=== PATIENT | female | born 1985 | race Caucasian/White ===

== ENCOUNTER 2018-05-06 14:11 | Emergency (ER) | payer BC ==
[~2018-05-06] VITALS: Ht 167.6 cm; Wt 112.5 kg
[~2018-05-06 14:11] MED LIST: ACET325; ALBU90I; ALBU90OI; ALBU90OI INH; ALBU90OI6; ALBU90OI6 INH; ALBU90OI61 INH; ALUMAGSIMA; ALUMAGX30; AMOX500 PO; ARIP10 PO; AZIT250 PO; AZIT500 PO; BENADRYL25 MG PO; BENZ100A PO; CALCAVITDA PO; CALGLU500; CAMPHETO; CEPH250SUA PO; CEPH500 PO; CETYLOZ; CLAR250 PO; CLON.5; CLOT1TC; CODACE30 PO; CODGUAEL PO; ERGO400 PO; FLUT110OIA IH; GUAPHELA PO; HYDACE5 PO; HYDGUAL120 PO; IBUP600; IBUP600 PO; IBUP800 PO; Indocin50 MG PO; LORA1; LORA2; MEDR150I IM; META800 PO; METPRE4DP PO; METR500 PO; MIRT30; MOM; MULVITMINE PO; Monodox100 MG PO; Mucinex600 MG PO; NALT50; NAPR500 PO; NAPR550 PO; NICO14TP; OLAN10A; ONDA4ODT MM; OXYACE5T PO; PHENA200 PO; PRAHYD1AE TOP; PRAZ1 PO; PRED20 PO; PROCODE120 PO; PROM25 PO; Pepcid20 MG PO; RANI150 PO; RXHYDGUAS PO; RXNAPNA550 PO; RXOXYACE PO; RXPROCODSY PO; RXPROM25 PO; RXSULTRIDS PO; RXTRAM50 PO; SERT25 PO; SERT50 PO; SULTRIDS PO; Sprintec1 EACH PO; TRAM50 PO; TRAZ100 PO; TRAZ50 PO; VITAMIN D35000 UNIT PO; ZYRTEC10 M1 PO; Zithromax250 MG PO; Zofran4 MG PO; [UNRECOGNIZED DRUG - OTHER]; [UNRECOGNIZED DRUG - OTHER]
[2018-05-06] MEDS ORDERED: METR500 PO (15:09)
[2018-05-06] MEDS ORDERED: FLUO10 PO (15:10)
[2018-05-06] MEDS ORDERED: CLIN300 PO (15:10)
[2018-05-06] MEDS ORDERED: TRAZ50 PO (15:11)
[2018-05-06] MEDS ORDERED: LORA1 PO (15:11)
[2018-05-06] MEDS ORDERED: QVAR REDIHALE10.6 G1 INH (15:12)
[2018-05-06 16:19] LABS: BASOPHILS ABSOLUTE AUTO 0.04 K/mm3 (0.00-0.23); BASOPHILS PERCENT AUTO 0 % (0-2); EOSINOPHILS ABSOLUTE AUTO 0.37 K/mm3 (0.00-0.68); EOSINOPHILS PERCENT AUTO 4 % (0-6); Hematocrit 41.4 % (33.0-51.0); Hemoglobin 14.1 g/dL (11.5-16.0); IMMATURE GRAN ABSOLUTE AUTO 0.03 K/mm3 (0.00-0.10); IMMATURE GRAN PERCENT AUTO 0 % (0-1); LYMPHOCYTES ABSOLUTE AUTO 1.74 K/mm3 (0.84-5.20); LYMPHOCYTES PERCENT AUTO 19 % (21-46); MONOCYTES PERCENT AUTO 9 % (4-13); Mean Corpuscular HGB 31.6 pg (26.0-34.0); Mean Corpuscular HGB Conc 34.1 g/dL (31.5-36.5); Mean Corpuscular Volume 93 fL (80-100); Mean Platelet Volume 9.7 fL (9.1-12.4); NEUTROPHILS ABSOLUTE AUTO 6.15 K/mm3 (1.96-9.15); NEUTROPHILS PERCENT AUTO 67 % (41-73); Platelet Count 269 K/mm3 (150-400); RDW Coefficient Variation 12.2 % (11.7-14.2); Red Blood Cell Count 4.46 M/mm3 (3.80-5.20); White Blood Cell Count 9.13 K/mm3 (4.00-11.30)
[2018-05-06 16:32] LABS: Anion Gap 9 mmol/L (6-16); Blood Urea Nitrogen 10 mg/dL (8-24); Bun/Creatinine Ratio 15.5 (12.0-20.0); CO2, Blood 25 mmol/L (21-32); Calcium, Blood 8.6 mg/dL (8.5-10.1); Chloride, Blood 106 mmol/L (98-108); Creatinine, Blood 0.65 mg/dL (0.40-1.00); Glomerular Filtration Rate >60 (60-); Glucose, Blood 88 mg/dL (70-99); Potassium, Blood 3.9 mmol/L (3.5-5.5); Sodium, Blood 140 mmol/L (136-145)
[2018-05-06] MEDS ORDERED: CEPH500 PO (19:02)
[2018-05-06] MEDS ORDERED: Bactrim Ds Tab1 EACH PO (19:02)
== END 2018-05-06 19:15 | disposition home or self-care (01) ==
LOC: ER 14:11
PROVIDERS: Physician Assistant
DX: L92.8 Other granulomatous disorders of the skin and subcutaneous tissue (principal); J45.909 Unspecified asthma, uncomplicated; Z88.0 Allergy status to penicillin; Z88.8 Allergy status to other drugs, medicaments and biological substances; Z79.899 Other long term (current) drug therapy; Z87.891 Personal history of nicotine dependence
CPT/HCPCS: 36415; 72193; 80048; 81000; 81025; 85025; 96361; 96374; 99284-25; J1885; J7030; Q9967

== ENCOUNTER 2018-07-14 06:15 | Day surgery (SDC) | payer BC ==
[~2018-07-14] VITALS: Ht 167.6 cm; Wt 110.4 kg
[~2018-07-14 06:15] MED LIST changes: +Bactrim Ds Tab1 EACH PO; +CITA20 PO; +CLIN300 PO; +FLUO10 PO; +LORA1 PO; +QVAR REDIHALE10.6 G1 INH; +Voltaren100 GM TOP
== END 2018-07-14 11:20 | disposition home or self-care (01) ==
LOC: ORSCSDS 06:15
PROVIDERS: Surgery
PROC: 0JB90ZZ Excision of Buttock Subcutaneous Tissue and Fascia, Open Approach (ICD-10-PCS; principal; 2018-07-14 07:30)
PROC: 0HX8XZZ Transfer Buttock Skin, External Approach (ICD-10-PCS; principal; 2018-07-14 07:30)
DX: L05.01 Pilonidal cyst with abscess (principal); J45.909 Unspecified asthma, uncomplicated; Z87.891 Personal history of nicotine dependence; E66.01 Morbid (severe) obesity due to excess calories; Z68.39 Body mass index [BMI] 39.0-39.9, adult; K21.9 Gastro-esophageal reflux disease without esophagitis; Z79.899 Other long term (current) drug therapy
CPT/HCPCS: 88305; J1100; J2001; J2405; J2765; J3010; J7120

== ENCOUNTER 2019-08-27 18:42 | Emergency (ER) | payer BC ==
[~2019-08-27] VITALS: Ht 167.6 cm; Wt 115.7 kg
[2019-08-27] MEDS ORDERED: IBUP800 PO (20:31)
[2019-08-27] MEDS ORDERED: HYDPAM50 (20:32)
[2019-08-27] MEDS ORDERED: BENADRYL25 MG PO (20:54)
[2019-08-27] MEDS ORDERED: Esgic Tablet1 EACH PO (20:54)
[2019-08-27] MEDS ORDERED: METO10 PO (20:54)
== END 2019-08-27 21:05 | disposition home or self-care (01) ==
LOC: ER 18:42
DX: F07.81 Postconcussional syndrome (principal); J45.909 Unspecified asthma, uncomplicated; Z88.0 Allergy status to penicillin; Z88.1 Allergy status to other antibiotic agents; Z88.8 Allergy status to other drugs, medicaments and biological substances; Z79.899 Other long term (current) drug therapy; Z79.51 Long term (current) use of inhaled steroids; Z87.891 Personal history of nicotine dependence
CPT/HCPCS: 70450; 72125; 99283-25

== ENCOUNTER 2020-01-10 14:57 | Emergency (ER) | payer BC ==
[~2020-01-10] VITALS: Ht 167.6 cm; Wt 113.8 kg
[~2020-01-10 14:57] MED LIST changes: +AMIT25 PO; +Esgic Tablet1 EACH PO; +HYDPAM50; +METO10 PO
[2020-01-10] MEDS ORDERED: FLUT1DIS5 INH (15:16)
[2020-01-10 15:38] LABS: BASOPHILS ABSOLUTE AUTO 0.05 K/mm3 (0.00-0.23); BASOPHILS PERCENT AUTO 0 % (0-2); EOSINOPHILS ABSOLUTE AUTO 0.43 K/mm3 (0.00-0.68); EOSINOPHILS PERCENT AUTO 4 % (0-6); Hematocrit 44.9 % (33.0-51.0); Hemoglobin 15.3 g/dL (11.5-16.0); IMMATURE GRAN ABSOLUTE AUTO 0.03 K/mm3 (0.00-0.10); IMMATURE GRAN PERCENT AUTO 0 % (0-1); LYMPHOCYTES ABSOLUTE AUTO 3.04 K/mm3 (0.84-5.20); LYMPHOCYTES PERCENT AUTO 26 % (21-46); MONOCYTES PERCENT AUTO 5 % (4-13); Mean Corpuscular HGB 31.4 pg (26.0-34.0); Mean Corpuscular HGB Conc 34.1 g/dL (31.5-36.5); Mean Corpuscular Volume 92 fL (80-100); Mean Platelet Volume 9.6 fL (9.1-12.4); NEUTROPHILS ABSOLUTE AUTO 7.74 K/mm3 (1.96-9.15); NEUTROPHILS PERCENT AUTO 65 % (41-73); Platelet Count 334 K/mm3 (150-400); RDW Coefficient Variation 12.2 % (11.7-14.2); RDW Standard Deviation 41.7 fL (35.1-46.3); Red Blood Cell Count 4.87 M/mm3 (3.80-5.20); White Blood Cell Count 11.89 K/mm3 (4.00-11.30)
[2020-01-10 16:01] LABS: Alanine Aminotransfer (ALT/SGP 28 U/L (12-78); Albumin, Blood 4.2 g/dL (3.4-5.0); Albumin/Globulin Ratio 1.1 (0.8-1.8); Alk Phos 95 U/L (50-136); Anion Gap 6 mmol/L (6-16); Aspartate Aminotrans (AST/SGOT 17 U/L (12-37); Bilirubin, Total 0.3 mg/dL (0.1-1.0); Blood Urea Nitrogen 12 mg/dL (8-24); CO2, Blood 25 mmol/L (21-32); Chloride, Blood 105 mmol/L (98-108); Creatinine, Blood 0.63 mg/dL (0.40-1.00); Globulin, Blood 3.9 g/dL (2.2-4.0); Glomerular Filtration Rate >60 (60-); Glucose, Blood 91 mg/dL (70-99); Potassium, Blood 3.8 mmol/L (3.5-5.5); Sodium, Blood 136 mmol/L (136-145); Total Protein, Blood 8.1 g/dL (6.4-8.2)
== END 2020-01-10 19:28 | disposition home or self-care (01) ==
LOC: ER 14:57
PROVIDERS: Physician Assistant
DX: F07.81 Postconcussional syndrome (principal); I10 Essential (primary) hypertension; F31.9 Bipolar disorder, unspecified; F17.210 Nicotine dependence, cigarettes, uncomplicated; Z79.899 Other long term (current) drug therapy
CPT/HCPCS: 36415; 70551; 80053; 85025; 99284-25

== ENCOUNTER 2020-10-31 17:30 | Emergency (ER) | payer OTHER, BC ==
[~2020-10-31] VITALS: Ht 170.2 cm; Wt 113.4 kg
[~2020-10-31 17:30] MED LIST changes: +FLUT1DIS5 INH
[2020-10-31] MEDS ORDERED: CYCL10 PO (19:25)
[2020-10-31] MEDS ORDERED: Percocet 5-3251 EACH PO (19:25)
== END 2020-10-31 19:37 | disposition home or self-care (01) ==
LOC: ER 17:30
DX: M54.16 Radiculopathy, lumbar region (principal); I10 Essential (primary) hypertension; Z87.891 Personal history of nicotine dependence
CPT/HCPCS: 96372; 99283-25; A9270; J1885

== ENCOUNTER 2020-12-29 15:15 | Emergency (ER) | payer OTHER, BC ==
[~2020-12-29] VITALS: Ht 165.1 cm; Wt 109.8 kg
[~2020-12-29 15:15] MED LIST changes: +CYCL10 PO; +Percocet 5-3251 EACH PO
[2020-12-29] MEDS ORDERED: CYCL10 PO (16:30)
[2020-12-29] MEDS ORDERED: IBUP400 PO (16:30)
== END 2020-12-29 16:43 | disposition home or self-care (01) ==
LOC: ER 15:15
DX: M54.5 Low back pain (principal); G89.29 Other chronic pain; I10 Essential (primary) hypertension; Z88.0 Allergy status to penicillin; Z88.1 Allergy status to other antibiotic agents; Z88.8 Allergy status to other drugs, medicaments and biological substances; Z79.899 Other long term (current) drug therapy
CPT/HCPCS: 96372; 99282-25; J1885

== ENCOUNTER 2021-01-19 11:44 | Emergency (ER) | payer OTHER, BC ==
[~2021-01-19] VITALS: Ht 165.1 cm; Wt 109.8 kg
[~2021-01-19 11:44] MED LIST changes: +IBUP400 PO
[2021-01-19] MEDS ORDERED: Norco 5-325 Ta1 EACH PO (12:54)
== END 2021-01-19 13:05 | disposition home or self-care (01) ==
LOC: ER 11:44
DX: R07.89 Other chest pain (principal); Z88.0 Allergy status to penicillin; Z88.1 Allergy status to other antibiotic agents; Z88.8 Allergy status to other drugs, medicaments and biological substances; Z79.899 Other long term (current) drug therapy; F17.200 Nicotine dependence, unspecified, uncomplicated
CPT/HCPCS: 73000; 99283-25

== ENCOUNTER 2021-04-14 14:15 | Emergency (ER) | payer OTHER, BC ==
[~2021-04-14] VITALS: Ht 165.1 cm; Wt 108.9 kg
[~2021-04-14 14:15] MED LIST changes: +Norco 5-325 Ta1 EACH PO
[2021-04-14 15:53] LABS: BASOPHILS ABSOLUTE AUTO 0.04 K/mm3 (0.00-0.23); BASOPHILS PERCENT AUTO 0 % (0-2); EOSINOPHILS ABSOLUTE AUTO 0.33 K/mm3 (0.00-0.68); EOSINOPHILS PERCENT AUTO 3 % (0-6); Hematocrit 44.3 % (33.0-51.0); Hemoglobin 15.2 g/dL (11.5-16.0); IMMATURE GRAN ABSOLUTE AUTO 0.05 K/mm3 (0.00-0.10); IMMATURE GRAN PERCENT AUTO 0 % (0-1); LYMPHOCYTES ABSOLUTE AUTO 2.67 K/mm3 (0.84-5.20); LYMPHOCYTES PERCENT AUTO 22 % (21-46); MONOCYTES PERCENT AUTO 6 % (4-13); Mean Corpuscular HGB 30.7 pg (26.0-34.0); Mean Corpuscular HGB Conc 34.3 g/dL (31.5-36.5); Mean Corpuscular Volume 90 fL (80-100); Mean Platelet Volume 9.6 fL (9.1-12.4); NEUTROPHILS PERCENT AUTO 69 % (41-73); Platelet Count 340 K/mm3 (150-400); RDW Standard Deviation 39.4 fL (35.1-46.3); Red Blood Cell Count 4.95 M/mm3 (3.80-5.20); White Blood Cell Count 12.29 K/mm3 (4.00-11.30)
[2021-04-14 16:12] LABS: Alanine Aminotransfer (ALT/SGP 22 U/L (12-78); Albumin/Globulin Ratio 1.1 (0.8-1.8); Alk Phos 96 U/L (50-136); Anion Gap 6 mmol/L (6-16); Aspartate Aminotrans (AST/SGOT 11 U/L (12-37); Bilirubin, Total 0.3 mg/dL (0.1-1.0); Blood Urea Nitrogen 12 mg/dL (8-24); Bun/Creatinine Ratio 22.8 (12.0-20.0); CO2, Blood 23 mmol/L (21-32); Calcium, Blood 9.4 mg/dL (8.5-10.1); Chloride, Blood 108 mmol/L (98-108); Creatinine, Blood 0.53 mg/dL (0.40-1.00); Globulin, Blood 3.6 g/dL (2.2-4.0); Glomerular Filtration Rate >60 (60-); Glucose, Blood 101 mg/dL (70-99); Potassium, Blood 4.1 mmol/L (3.5-5.5); Sodium, Blood 137 mmol/L (136-145); Total Protein, Blood 7.6 g/dL (6.4-8.2)
[2021-04-14 20:41] LABS: Troponin I <0.015 ng/mL (0.000-0.040)
[2021-04-14 20:51] LABS: Source, Urine Voided
[2021-04-14 20:54] LABS: Bilirubin, Urine Neg (Neg); Blood, Urine 1+ (Neg); Color, Urine Yellow (P-Yellow); Glucose Qualitative, Urine Neg (Neg); Ketones, Urine Neg (Neg); Leukocyte Esterase, Urine Neg (Neg); Nitrite, Urine Neg (Neg); Protein, Urine Neg (Neg); Specific Gravity, Urine 1.025 (1.003-1.022); Urobilinogen, Urine NORM (Normal)
[2021-04-14 21:04] LABS: Appearance, Urine Hazy (Clear)
[2021-04-14 21:05] LABS: Bacteria Many /hpf; Mucus Light (0-Heavy); Red Blood Cells, Urine Rare /hpf (0-2); Squamous Epithelial Cells Mod /hpf (Few); White Blood Cells, Urine 0-2 /hpf (0-5)
== END 2021-04-14 21:54 | disposition home or self-care (01) ==
LOC: ER 14:15
PROVIDERS: Emergency Medicine; Physician Assistant
DX: R41.0 Disorientation, unspecified (principal); R51.9 Headache, unspecified; I95.9 Hypotension, unspecified; J45.909 Unspecified asthma, uncomplicated; F17.210 Nicotine dependence, cigarettes, uncomplicated; Z88.0 Allergy status to penicillin; Z88.1 Allergy status to other antibiotic agents; Z88.8 Allergy status to other drugs, medicaments and biological substances; Z79.899 Other long term (current) drug therapy; Z98.890 Other specified postprocedural states
CPT/HCPCS: 36415; 80053; 81001; 84443; 84484; 84703; 85025; 87086; 93005; 93010; 96361; 96374; 99284-25; J2405; J7030

== ENCOUNTER → 2021-05-14 | Outpatient (CLI) | payer OTHER, BC | END | disposition home or self-care (01) | LOC: LAB SHORT 11:29 | DX: R09.89 Other specified symptoms and signs involving the circulatory and respiratory systems (principal) | CPT/HCPCS: 87070 ==

== ENCOUNTER → 2022-02-07 | Outpatient (CLI) | payer BC ==
[2022-02-07 11:13] LABS: BASOPHILS ABSOLUTE AUTO 0.03 K/mm3 (0.00-0.23); BASOPHILS PERCENT AUTO 0 % (0-2); EOSINOPHILS PERCENT AUTO 2 % (0-6); Hematocrit 45.5 % (33.0-51.0); Hemoglobin 15.9 g/dL (11.5-16.0); IMMATURE GRAN ABSOLUTE AUTO 0.06 K/mm3 (0.00-0.10); IMMATURE GRAN PERCENT AUTO 1 % (0-1); LYMPHOCYTES ABSOLUTE AUTO 1.57 K/mm3 (0.84-5.20); LYMPHOCYTES PERCENT AUTO 12 % (21-46); MONOCYTES ABSOLUTE AUTO 1.04 K/mm3 (0.16-1.47); MONOCYTES PERCENT AUTO 8 % (4-13); Mean Corpuscular HGB 31.8 pg (26.0-34.0); Mean Corpuscular HGB Conc 34.9 g/dL (31.5-36.5); Mean Corpuscular Volume 91 fL (80-100); Mean Platelet Volume 9.2 fL (9.1-12.4); NEUTROPHILS ABSOLUTE AUTO 10.07 K/mm3 (1.96-9.15); NEUTROPHILS PERCENT AUTO 77 % (41-73); Platelet Count 273 K/mm3 (150-400); RDW Standard Deviation 42.5 fL (35.1-46.3); White Blood Cell Count 13.07 K/mm3 (4.00-11.30)
[2022-02-07 11:21] LABS: Bun/Creatinine Ratio 11.7 (12.0-20.0); Creatinine, Blood 0.77 mg/dL (0.40-1.00); Potassium, Blood 4.1 mmol/L (3.5-5.5)
== END | disposition home or self-care (01) ==
LOC: LAB SHORT 11:10
PROVIDERS: Physician Assistant
DX: R05.1 Acute cough (principal)
CPT/HCPCS: 80048; 85025

== ENCOUNTER → 2022-09-09 | Outpatient (CLI) | payer BC ==
[2022-09-09 17:35] LABS: BASOPHILS ABSOLUTE AUTO 0.06 K/mm3 (0.00-0.23); BASOPHILS PERCENT AUTO 1 % (0-2); EOSINOPHILS ABSOLUTE AUTO 0.55 K/mm3 (0.00-0.68); EOSINOPHILS PERCENT AUTO 5 % (0-6); Hemoglobin 15.3 g/dL (11.5-16.0); IMMATURE GRAN ABSOLUTE AUTO 0.04 K/mm3 (0.00-0.10); IMMATURE GRAN PERCENT AUTO 0 % (0-1); LYMPHOCYTES ABSOLUTE AUTO 3.11 K/mm3 (0.84-5.20); LYMPHOCYTES PERCENT AUTO 26 % (21-46); MONOCYTES ABSOLUTE AUTO 0.77 K/mm3 (0.16-1.47); MONOCYTES PERCENT AUTO 7 % (4-13); Mean Corpuscular HGB Conc 34.8 g/dL (31.5-36.5); Mean Corpuscular Volume 89 fL (80-100); Mean Platelet Volume 9.7 fL (9.1-12.4); NEUTROPHILS ABSOLUTE AUTO 7.27 K/mm3 (1.96-9.15); NEUTROPHILS PERCENT AUTO 62 % (41-73); Platelet Count 375 K/mm3 (150-400); RDW Coefficient Variation 12.3 % (11.7-14.2); RDW Standard Deviation 40.2 fL (35.1-46.3); Red Blood Cell Count 4.93 M/mm3 (3.80-5.20)
[2022-09-09 17:38] LABS: Bun/Creatinine Ratio 16.2 (12.0-20.0); Calcium, Blood 9.1 mg/dL (8.5-10.1); Creatinine, Blood 0.74 mg/dL (0.40-1.00); Potassium, Blood 3.8 mmol/L (3.5-5.5)
== END | disposition home or self-care (01) ==
LOC: LAB SHORT 17:26 → LAB 17:26
PROVIDERS: Emergency Medicine
DX: K92.1 Melena (principal)
CPT/HCPCS: 80048; 85025

== ENCOUNTER 2023-02-23 09:51 | Day surgery (SDC) | payer BC ==
[~2023-02-23] VITALS: Ht 167.6 cm; Wt 113.1 kg
[2023-02-23] MEDS ORDERED: PANT20 (10:20)
[2023-02-23] MEDS ORDERED: ONDA4ODT (10:21)
[2023-02-23 12:48] VITALS: BP 111/76
--- NOTE | 2023-02-23 12:55 | NUR ---
02/23/23 9325 RORY LERMA UPON ARRIVAL INTO STEP DOWN, IT WAS NOTED PATIENT WAS EXPERIENCING SLOW SPEECH/DELAYED SPEECH AND DIFFICULTY PROCESSING INFORMATION. PER PT HISTORY SHE HAS HAD THIS EXPERIENCE PRIOR WITH A GENERAL SURGERY PROCEDRE AND GENERAL ANESTHESIA. SHE THEN WAS UTILIZING SPEECH THERAPY FOR UP TO A YEAR UNTIL SHE NO LONGER WAS PROGRESSING. SHE REPORTS RESIDUAL LEFT SIDED NUMBNESS AND IT WAS NOTED THERE WAS A DECRESED STRENGTH ON HER LEFT SIDE AND DROOPY SMILE ON LEFT SIDE. PT REPORTS AFTER MEDICATION IT CAN TAKE UP TO SEVERAL WEEKS TO RETURN TO HER BASELINE. DR. VIZCARRA WAS CONSULTED AND INITIALLY ORDERED AN EXTENDED STAY RECOVERY. PT STAYED IN RECOVERY FOR AN HOUR WITH NO CHANGE. PT'S MOTHER AT BEDSIDE AND CONFIRMS THIS. PT ALSO REPORTS SHE HAS A FOLLOW UP WITH HER PRIMARY CARE IN TWO WEEKS. SHE WAS ADVISED IF NOT IMPROVED IT IS SUGGESTED SHE RETURN TO SPEECH THERAPY AND CONTINUE HER NEUROPLASTICITY THERAPY SHE IS CURRENTLY UNDERGOING. DR. VIZCARRA ADVISED OF THIS AND OK'D PT TO DC PT WAS EAGER AND HAS NO CONCERNS. REVIEWED DC INSTRUCTIONS WITH MOTHER AND PT DRESSED W/ASSISTANCE OF HER MOTHER.SHE WAS ABLE TO VOID PRIOR TO DC WITH WC ASSIST.
== END 2023-02-23 12:55 | disposition home or self-care (01) ==
LOC: ORSCSDS 09:51
DX: K62.5 Hemorrhage of anus and rectum (principal); R10.13 Epigastric pain; K31.7 Polyp of stomach and duodenum; K62.1 Rectal polyp; K64.0 First degree hemorrhoids; K44.9 Diaphragmatic hernia without obstruction or gangrene; G47.33 Obstructive sleep apnea (adult) (pediatric); K21.9 Gastro-esophageal reflux disease without esophagitis; Z79.899 Other long term (current) drug therapy
CPT/HCPCS: 88305; 88342; J2704; J7120

== ENCOUNTER 2023-08-24 11:30 | Emergency (ER) | payer BC ==
[~2023-08-24] VITALS: Ht 167.6 cm; Wt 111.1 kg
[~2023-08-24 11:30] MED LIST changes: +ONDA4ODT; +PANT20
[2023-08-24 11:47] VITALS: BP 128/99
== END 2023-08-24 12:27 | disposition home or self-care (01) ==
LOC: ER 11:30
DX: M79.18 Myalgia, other site (principal); J45.909 Unspecified asthma, uncomplicated; F17.200 Nicotine dependence, unspecified, uncomplicated; Z88.0 Allergy status to penicillin; Z88.1 Allergy status to other antibiotic agents; Z88.8 Allergy status to other drugs, medicaments and biological substances; Z91.013 Allergy to seafood; Z79.899 Other long term (current) drug therapy
CPT/HCPCS: 71046; 96372; 99283-25; J1885

== ENCOUNTER → 2024-05-07 | Outpatient (CLI) | payer BC, MEDICARE ==
[2024-05-17 06:23] LABS: HPV HIGH RISK BY TMA Not Detected; HPV SOURCE Cervical/Vag
== END | disposition home or self-care (01) ==
LOC: LAB SHORT 16:54 → LAB 16:54
PROVIDERS: Obstetrics & Gynecology
DX: Z01.411 Encounter for gynecological examination (general) (routine) with abnormal findings (principal)
CPT/HCPCS: 87624; G0123

== ENCOUNTER → 2024-06-20 | Outpatient (CLI) | payer BC, MEDICARE ==
[2024-06-20 14:27] LABS: BASOPHILS ABSOLUTE AUTO 0.06 K/mm3 (0.00-0.23); BASOPHILS PERCENT AUTO 0 % (0-2); EOSINOPHILS ABSOLUTE AUTO 0.31 K/mm3 (0.00-0.68); EOSINOPHILS PERCENT AUTO 2 % (0-6); Hematocrit 42.3 % (33.0-51.0); Hemoglobin 14.5 g/dL (11.5-16.0); IMMATURE GRAN ABSOLUTE AUTO 0.05 K/mm3 (0.00-0.10); IMMATURE GRAN PERCENT AUTO 0 % (0-1); LYMPHOCYTES ABSOLUTE AUTO 2.69 K/mm3 (0.84-5.20); LYMPHOCYTES PERCENT AUTO 19 % (21-46); MONOCYTES ABSOLUTE AUTO 0.57 K/mm3 (0.16-1.47); MONOCYTES PERCENT AUTO 4 % (4-13); Mean Corpuscular HGB 30.7 pg (26.0-34.0); Mean Corpuscular HGB Conc 34.3 g/dL (31.5-36.5); Mean Corpuscular Volume 90 fL (80-100); Mean Platelet Volume 9.4 fL (9.1-12.4); NEUTROPHILS PERCENT AUTO 74 % (41-73); Platelet Count 348 K/mm3 (150-400); RDW Coefficient Variation 12.5 % (11.7-14.2); Red Blood Cell Count 4.72 M/mm3 (3.80-5.20); White Blood Cell Count 14.38 K/mm3 (4.00-11.30)
[2024-06-20 14:50] LABS: Albumin, Blood 3.8 g/dL (3.4-5.0); Albumin/Globulin Ratio 1.1 (0.8-1.8); Bilirubin, Total 0.3 mg/dL (0.1-1.0); Bun/Creatinine Ratio 19.2 (12.0-20.0); Calcium, Blood 9.1 mg/dL (8.5-10.1); Creatinine, Blood 0.78 mg/dL (0.40-1.00); Globulin, Blood 3.6 g/dL (2.2-4.0); Thyroid Stimulating Hormone 1.639 uIU/mL (0.360-4.800); Total Protein, Blood 7.4 g/dL (6.4-8.2)
== END | disposition home or self-care (01) ==
LOC: LAB SHORT 14:24 → LAB 14:24
PROVIDERS: Chiropractor
DX: R07.89 Other chest pain (principal); R53.83 Other fatigue
CPT/HCPCS: 80053; 84443; 84484; 85025; 85379

== ENCOUNTER → 2024-06-22 | Outpatient (CLI) | payer BC, MEDICARE ==
[2024-06-22 12:41] LABS: BASOPHILS ABSOLUTE AUTO 0.07 K/mm3 (0.00-0.23); BASOPHILS PERCENT AUTO 1 % (0-2); EOSINOPHILS ABSOLUTE AUTO 0.23 K/mm3 (0.00-0.68); EOSINOPHILS PERCENT AUTO 2 % (0-6); Hematocrit 41.4 % (33.0-51.0); Hemoglobin 14.5 g/dL (11.5-16.0); IMMATURE GRAN ABSOLUTE AUTO 0.05 K/mm3 (0.00-0.10); IMMATURE GRAN PERCENT AUTO 0 % (0-1); LYMPHOCYTES ABSOLUTE AUTO 2.79 K/mm3 (0.84-5.20); LYMPHOCYTES PERCENT AUTO 23 % (21-46); MONOCYTES ABSOLUTE AUTO 0.53 K/mm3 (0.16-1.47); MONOCYTES PERCENT AUTO 4 % (4-13); Mean Corpuscular HGB 31.2 pg (26.0-34.0); Mean Corpuscular Volume 89 fL (80-100); Mean Platelet Volume 10.1 fL (9.1-12.4); NEUTROPHILS ABSOLUTE AUTO 8.45 K/mm3 (1.96-9.15); NEUTROPHILS PERCENT AUTO 70 % (41-73); Platelet Count 360 K/mm3 (150-400); RDW Coefficient Variation 12.6 % (11.7-14.2); RDW Standard Deviation 40.9 fL (35.1-46.3); Red Blood Cell Count 4.65 M/mm3 (3.80-5.20); White Blood Cell Count 12.12 K/mm3 (4.00-11.30)
== END | disposition home or self-care (01) ==
LOC: LAB 11:55 → LAB SHORT 11:55
PROVIDERS: Chiropractor
DX: R07.9 Chest pain, unspecified (principal)
CPT/HCPCS: 84484; 85025; 85379